=== PATIENT | female | born 1995 | race African-American/Black ===

== ENCOUNTER 2016-09-08 11:21 | Emergency (ER) | payer MEDICAID ==
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
[2016-09-08] MEDS ORDERED: IBUPROFEN 600 MG TABLET PO ONE (11:34)
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
[2016-09-08 15:39] VITALS: BP 122/64
== END 2016-09-08 15:17 | disposition home or self-care (01) ==
LOC: ER 11:21
DX: M54.5 Low back pain (principal); M79.641 Pain in right hand; Y04.2XXA Assault by strike against or bumped into by another person, initial encounter; F17.210 Nicotine dependence, cigarettes, uncomplicated; M79.89 Other specified soft tissue disorders
CPT/HCPCS: 99283; 73130; 72110; 72070; J3490

== ENCOUNTER 2017-01-08 16:44 | Emergency (ER) | payer MEDICAID ==
--- NOTE | 2017-01-08 17:57 | ER Document Report ---
HPI - HPI Patient complains to provider of: right foot injury Pain Level: 4 Context: 21 yo female c/o pain and swelling to right foot. pt reports she tripped over dresser drawer this morning, twisting her foot and ankle. no weight bearing tolerated. Associated Symptoms: None Exacerbated by: Movement, Walking Relieved by: Denies Similar symptoms previously: No Recently seen / treated by doctor: No - ROS Systems Reviewed and Negative: Yes All other systems reviewed and negative - REPRODUCTIVE Reproductive: DENIES: : - DERM Skin Color: Normal Past Medical History - General Information source: Patient - Social History Smoking Status: Never Smoker Frequency of alcohol use: None Drug Abuse: None Lives with: Family Family History: Reviewed & Not Pertinent - Medical History Medical History: Negative Renal/ Medical History: Denies: Hx Peritoneal Dialysis Past Surgical History: Reports: Hx Tonsillectomy - Immunizations Immunizations up to date: Yes Hx Diphtheria, Pertussis, Tetanus Vaccination: Yes Vertical Provider Document - CONSTITUTIONAL Agree With Documented VS: Yes Exam Limitations: No Limitations General Appearance: WD/WN, No Apparent Distress - INFECTION CONTROL TRAVEL OUTSIDE OF THE [place] IN LAST 30 DAYS: No - HEENT HEENT: PERRLA - NECK Neck: Normal Inspection, Supple - RESPIRATORY Respiratory: Breath Sounds Normal, No Respiratory Distress O2 Sat by Pulse Oximetry: 100 - CARDIOVASCULAR Cardiovascular: Regular Rate, Regular Rhythm - MUSCULOSKELETAL/EXTREMETIES Musculoskeletal/Extremeties: Tender - right lateral foot and lateral malleolus tender and swollen - NEURO Level of Consciousness: Awake, Alert, Appropriate - DERM Integumentary: Warm, Dry Course - Vital Signs Vital signs: Temp Pulse Resp BP Pulse Ox 76 16 110/64 100 01/08/17 17:02 01/08/17 17:02 01/08/17 17:02 01/08/17 17:02 Procedures - Immobilization right ankle Pre-Proc Neuro Vasc Exam: Normal Immobilizer type: Jimenez wrap Performed by: PCT Post-Proc Neuro Vasc Exam: Normal Alignment checked and good: Yes Discharge - Discharge Clinical Impression: Right ankle sprain, Right foot sprain Condition: Stable Instructions: Jimenez Wrap ([facility]), Use of Crutches ([facility]), Ibuprofen (General) ([facility]) , Ice Packs ([facility]), Sprain ([facility]), Sprained Ankle ([facility]), Ultram ([facility]) Additional Instructions: Your xray is negative for fracture today wear jimenez wrap for comfort and support use crutches until able to bear weight without pain take medications as prescribed follow up with your primary care if pain persists more than 10 days Prescriptions: Ibuprofen [Motrin 800 Mg Tablet] 800 mg PO Q6H #20 tablet Tramadol HCl [Ultram 50 mg Tablet] 50 mg PO ASDIR PRN #20 tablet PRN Reason:
--- NOTE | 2017-01-08 18:44 | RADIOLOGY REPORT (SQ) ---
EXAM DESCRIPTION: ANKLE RIGHT COMPLETE COMPLETED DATE/TIME: 01/08/2017 6:36 pm REASON FOR STUDY: fall, pain COMPARISON: None. NUMBER OF VIEWS: Three views. TECHNIQUE: AP, lateral, and oblique radiographic images acquired of the right ankle. LIMITATIONS: None. FINDINGS: MINERALIZATION: Normal. BONES: No acute fracture or dislocation. No worrisome bone lesions. JOINTS: No effusions. SOFT TISSUES: No soft tissue swelling. No foreign body. OTHER: No other significant finding. IMPRESSION: NEGATIVE STUDY OF THE RIGHT ANKLE. NO RADIOGRAPHIC EVIDENCE OF ACUTE INJURY. TECHNICAL DOCUMENTATION: JOB ID: [id number] [employer]- All Rights Reserved
[2017-01-08 18:59] VITALS: BP 105/68
== END 2017-01-08 18:59 | disposition home or self-care (01) ==
LOC: ER 16:44
DX: S93.601A Unspecified sprain of right foot, initial encounter (principal); S93.401A Sprain of unspecified ligament of right ankle, initial encounter; W01.0XXA Fall on same level from slipping, tripping and stumbling without subsequent striking against object, initial encounter; Y92.009 Unspecified place in unspecified non-institutional (private) residence as the place of occurrence of the external cause
CPT/HCPCS: 99283

== ENCOUNTER 2017-01-09 18:27 | Emergency (ER) | payer MEDICAID ==
[2017-01-09 18:31] VITALS: BP 118/66
--- NOTE | 2017-01-09 19:30 | RADIOLOGY REPORT (SQ) ---
EXAM DESCRIPTION: ANKLE RIGHT COMPLETE COMPLETED DATE/TIME: 01/09/2017 7:04 pm REASON FOR STUDY: sprianed her ankle yesterday, fell again, pain COMPARISON: 01/08/2017 NUMBER OF VIEWS: Three views. TECHNIQUE: AP, lateral, and oblique radiographic images acquired of the right ankle. LIMITATIONS: None. FINDINGS: MINERALIZATION: Normal. BONES: No acute fracture or dislocation. No worrisome bone lesions. JOINTS: No effusions. SOFT TISSUES: No soft tissue swelling. No foreign body. OTHER: No other significant finding. IMPRESSION: NEGATIVE STUDY OF THE RIGHT ANKLE. NO RADIOGRAPHIC EVIDENCE OF ACUTE INJURY. TECHNICAL DOCUMENTATION: JOB ID: [id number] [employer]- All Rights Reserved
--- NOTE | 2017-01-09 19:45 | RADIOLOGY REPORT (SQ) ---
EXAM DESCRIPTION: FOOT RIGHT COMPLETE COMPLETED DATE/TIME: 01/09/2017 7:35 pm REASON FOR STUDY: fall COMPARISON: None. NUMBER OF VIEWS: Three views. TECHNIQUE: AP, lateral and oblique radiographic images acquired of the right foot. LIMITATIONS: None. FINDINGS: MINERALIZATION: Normal. BONES: No acute fracture or dislocation. No worrisome bone lesions. JOINTS: No effusions. SOFT TISSUES: No soft tissue swelling. No foreign body. OTHER: No other significant finding. IMPRESSION: NEGATIVE STUDY OF THE RIGHT FOOT. NO RADIOGRAPHIC EVIDENCE OF ACUTE INJURY. TECHNICAL DOCUMENTATION: JOB ID: [id number] [employer]- All Rights Reserved
--- NOTE | 2017-01-09 19:49 | ER Document Report ---
ED Extremity Problem, Lower - General Chief Complaint: Ankle Pain Stated Complaint: FALL/ ANKLE INJURY Time Seen by Provider: 01/09/17 19:19 Notes: Patient is a 21-year-old female seen here yesterday for right ankle sprain. Patient states that she was on crutches today tripped and fell and rolled her ankle laterally again today. Patient admits to swelling on the top of her foot that is new today with associated breathing. Patient took tramadol prior to arrival. TRAVEL OUTSIDE OF THE [place] IN LAST 30 DAYS: No - Related Data Allergies/Adverse Reactions: No Known Allergies Allergy (Verified 01/09/17 18:31) Past Medical History - Social History Smoking Status: Unknown if Ever Smoked Family History: Reviewed & Not Pertinent Renal/ Medical History: Denies: Hx Peritoneal Dialysis Past Surgical History: Reports: Hx Tonsillectomy - Immunizations Immunizations up to date: Yes Hx Diphtheria, Pertussis, Tetanus Vaccination: Yes Review of Systems - Review of Systems Constitutional: No symptoms reported Musculoskeletal: See HPI Physical Exam - Vital signs Vitals: Temp Pulse Resp BP Pulse Ox 98.4 F 85 14 118/66 100 01/09/17 18:31 01/09/17 18:31 01/09/17 18:31 01/09/17 18:31 01/09/17 18:31 - Cardiovascular Pulses: Normal: Dorsalis pedis Normal capillary refill: Yes - Extremities Thigh: Normal Knee: Normal Calf: Normal Ankle: Tender, Ecchymosis, Edema Foot: Tender, Ecchymosis, Edema, Metatarsal compress. pain, Unable to bear weight - Skin Skin Temperature: Warm Skin Moisture: Dry Skin Color: Normal Skin Turgor: Elastic Course - Re-evaluation Re-evalutation: 01/09/17 21:32 Patient is a 21-year-old female hemodynamic stable, no acute distress afebrile. No evidence of new fracture dislocation on x-ray. Patient educated on proper use of crutches. Patient stable for discharge home. Patient agrees with plan. - Vital Signs Vital signs: Temp Pulse Resp BP Pulse Ox 98.4 F 85 14 118/66 100 01/09/17 18:31 01/09/17 18:31 01/09/17 18:31 01/09/17 18:31 01/09/17 18:31 - Diagnostic Test Radiology reviewed: Image reviewed, Reports reviewed Discharge - Discharge Clinical Impression: Right foot sprain Qualifiers: Encounter type: subsequent encounter Qualified Code(s): S93.601D - Unspecified sprain of right foot, subsequent encounter Right ankle sprain Qualifiers: Encounter type: subsequent encounter Condition: Good Disposition: HOME, SELF-CARE Instructions: Jimenez Wrap ([facility]), Use of Crutches ([facility]), Ice & Elevation ([facility]) Forms: Return to Work
== END 2017-01-09 20:04 | disposition home or self-care (01) ==
LOC: ER 18:27
DX: S93.601D Unspecified sprain of right foot, subsequent encounter (principal); M25.571 Pain in right ankle and joints of right foot; M79.89 Other specified soft tissue disorders; W19.XXXA Unspecified fall, initial encounter
CPT/HCPCS: 99283

== ENCOUNTER 2017-08-31 15:56 | Outpatient (CLI) | payer MEDICAID ==
[2017-08-31 16:40] LABS: APPEARANCE,URINE CLEAR; BILIRUBIN,URINE NEGATIVE (NEGATIVE); COLOR,URINE YELLOW; GLUCOSE, URINE NEGATIVE (NEGATIVE); KETONES,URINE NEGATIVE (NEGATIVE); LEUKOCYTE ESTERASE,URINE NEGATIVE (NEGATIVE); NITRITE,URINE NEGATIVE (NEGATIVE); PROTEIN,URINE NEGATIVE (NEGATIVE); URINE SPECIFIC GRAVITY 1.012
[2017-08-31 16:52] LABS: URINE AMPHETAMINES SCREEN NEGATIVE; URINE BARBITURATES SCREEN NEGATIVE; URINE BENZODIAZEPINES SCREEN NEGATIVE; URINE COCAINE SCREEN NEGATIVE; URINE METHADONE SCREEN NEGATIVE; URINE PHENCYCLIDINE SCREEN NEGATIVE
[2017-08-31 16:58] LABS: URINE MARIJUANA (THC) SCREEN UNCONFIRMED POSITIVE
[2017-08-31 17:04] LABS: ABSOLUTE BASOPHILS # (AUTO) 0.1 10^3/uL (0.0-0.2); ABSOLUTE MONOCYTES (AUTO) 0.7 10^3/uL (0.1-1.4); ABSOLUTE NEUT (AUTO) 4.6 10^3/uL (1.7-8.2); EOSINOPHILS % (AUTO) 0.6 % (0-6); HEMATOCRIT 31.5 % (36.0-47.0); HEMOGLOBIN 10.2 g/dL (12.0-15.5); LYMPHOCYTES % (AUTO) 26.4 % (13-45); MEAN CORPUSCULAR HEMOGLOBIN 25.4 pg (27.0-33.4); MEAN CORPUSCULAR HGB CONC 32.6 g/dL (32.0-36.0); MEAN CORPUSCULAR VOLUME 78 fl (80-97); PLATELET COUNT 273 10^3/uL (150-450); RED BLOOD COUNT 4.03 10^6/uL (3.72-5.28); RED CELL DISTRIBUTION WIDTH 14.4 % (11.5-14.0); TOTAL CELLS COUNTED % (AUTO) 100 %; WHITE BLOOD COUNT 7.4 10^3/uL (4.0-10.5)
[2017-08-31 17:13] LABS: ALANINE AMINOTRANSFERASE 30 U/L (9-52); ALBUMIN 3.6 g/dL (3.5-5.0); ALKALINE PHOSPHATASE 154 U/L (38-126); ANION GAP 8 (5-19); ASPARTATE AMINO TRANSFERASE 20 U/L (14-36); BILIRUBIN,DIRECT 0.3 mg/dL (0.0-0.4); BILIRUBIN,TOTAL 0.4 mg/dL (0.2-1.3); BLOOD UREA NITROGEN 3 mg/dL (7-20); CALCIUM 9.2 mg/dL (8.4-10.2); CARBON DIOXIDE 22 mmol/L (22-30); CHLORIDE 108 mmol/L (98-107); GLUCOSE 70 mg/dL (75-110); POTASSIUM 4.2 mmol/L (3.6-5.0); SODIUM 137.5 mmol/L (137-145); TOTAL PROTEIN 7.2 g/dL (6.3-8.2)
--- NOTE | 2017-08-31 17:47 | Non Stress Test Report ---
Non Stress Test Datetime Report Generated by CPN: 08/31/2017 17:46 DEMOGRAPHIC EGA NST: 35.5 INDICATION Indication for Study: Ordered by Provider; Other MONITORING Monitor Explained: Monitor Explained; Test Explained; Patient Verbalized Understanding Time on Monitor: 08/31/2017 16:10 Time off Monitor: 08/31/2017 17:40 NST Duration: 90 NST INTERVENTIONS NST Interventions: PO Hydration; Reposition Patient Physician Notified NST: LC BABY A: [id number] BABY A Movement : Present Contraction Frequency : Irr FHR Baseline : 145 Accelerations : 15X15 Decelerations : None Variability : Moderate 6-25bpm NST Review: Meets Criteria for Reactive NST NST Review and Verified By : Eva Childers RNC NST Results: Reactive NST REPORT Report Trigger: Send Report
== END 2017-08-31 17:56 | disposition home or self-care (01) ==
LOC: LC 15:56
PROVIDERS: ATTEND Student in an Organized Health Care Education/Training Program
PROC: 4A1HXCZ Monitoring of Products of Conception, Cardiac Rate, External Approach (ICD-10-PCS; principal; 2017-08-31)
DX: Z36.89 Encounter for other specified antenatal screening (principal); Z3A.35 35 weeks gestation of pregnancy
CPT/HCPCS: 59025; 36415; 82962; 85025; 80053; 81001; 80307; G0480 ×2

== ENCOUNTER 2017-09-28 00:12 | Outpatient (CLI) | payer MEDICAID ==
[2017-09-28 01:03] LABS: APPEARANCE,URINE CLEAR; BILIRUBIN,URINE NEGATIVE (NEGATIVE); COLOR,URINE YELLOW; GLUCOSE, URINE NEGATIVE (NEGATIVE); KETONES,URINE NEGATIVE (NEGATIVE); LEUKOCYTE ESTERASE,URINE NEGATIVE (NEGATIVE); NITRITE,URINE NEGATIVE (NEGATIVE); PROTEIN,URINE NEGATIVE (NEGATIVE); URINE SPECIFIC GRAVITY 1.006; UROBILINOGEN,URINE NEGATIVE mg/dL (<2.0)
[2017-09-28 01:27] LABS: URINE AMPHETAMINES SCREEN NEGATIVE; URINE BARBITURATES SCREEN NEGATIVE; URINE BENZODIAZEPINES SCREEN NEGATIVE; URINE COCAINE SCREEN NEGATIVE; URINE METHADONE SCREEN NEGATIVE; URINE PHENCYCLIDINE SCREEN NEGATIVE
[2017-09-28 01:32] LABS: URINE MARIJUANA (THC) SCREEN UNCONFIRMED POSITIVE
--- NOTE | 2017-09-28 01:34 | Non Stress Test Report ---
Non Stress Test Datetime Report Generated by CPN: 09/28/2017 01:34 DEMOGRAPHIC EGA NST: 39.5 INDICATION Indication for Study: Ordered by Provider; Other Indication for Study (NST) Other: LC URINE RESULTS Urine Protein, NST: Negative Urine Ketones - NST: Negative Urine Glucose - NST: Negative Urine Blood - NST: Negative MONITORING Monitor Explained: Monitor Explained; Test Explained; Patient Verbalized Understanding Time on Monitor: 09/28/2017 00:37 Time off Monitor: 09/28/2017 01:18 NST Duration: 41 NST INTERVENTIONS NST Interventions: PO Hydration; Reposition Patient BABY A: [id number] BABY A Movement : Present Contraction Frequency : Irregular FHR Baseline : 135 Accelerations : 15X15 Decelerations : None Variability : Moderate 6-25bpm NST Review: Meets Criteria for Reactive NST NST Review and Verified By : Abad Dubon RN NST Results: Reactive NST REPORT Report Trigger: Send Report
[2017-09-28 21:51] LABS: APPEARANCE,URINE CLEAR; BILIRUBIN,URINE NEGATIVE (NEGATIVE); COLOR,URINE YELLOW; GLUCOSE, URINE NEGATIVE (NEGATIVE); KETONES,URINE NEGATIVE (NEGATIVE); LEUKOCYTE ESTERASE,URINE NEGATIVE (NEGATIVE); NITRITE,URINE NEGATIVE (NEGATIVE); PROTEIN,URINE NEGATIVE (NEGATIVE); URINE SPECIFIC GRAVITY 1.009
[2017-09-28 22:18] LABS: URINE AMPHETAMINES SCREEN NEGATIVE; URINE BARBITURATES SCREEN NEGATIVE; URINE BENZODIAZEPINES SCREEN NEGATIVE; URINE COCAINE SCREEN NEGATIVE; URINE METHADONE SCREEN NEGATIVE; URINE PHENCYCLIDINE SCREEN NEGATIVE
[2017-09-28 22:25] LABS: URINE MARIJUANA (THC) SCREEN UNCONFIRMED POSITIVE
== END 2017-09-28 02:44 | disposition home or self-care (01) ==
LOC: LC 00:12
PROVIDERS: ATTEND Student in an Organized Health Care Education/Training Program
PROC: 4A1HXCZ Monitoring of Products of Conception, Cardiac Rate, External Approach (ICD-10-PCS; principal; 2017-09-28)
DX: O47.1 False labor at or after 37 completed weeks of gestation (principal); Z3A.39 39 weeks gestation of pregnancy
CPT/HCPCS: 81005; 81001; 80307; 59025; G0480 ×2

== ENCOUNTER 2017-09-28 21:05 | Inpatient (IN) | payer MEDICAID ==
[2017-09-28] MEDS ORDERED: LIDOCAINE 1% INJ-PF (10 MG/ML) 30 ML SDV ONE (21:26)
[2017-09-28] MEDS ORDERED: MISOPROSTOL 0.2 MG TABLET ONE (21:26)
[2017-09-28] MEDS ORDERED: OXYTOCIN/NORMAL SALINE 20 UNIT/1,000 ML RTUINJ ONE (21:27)
--- NOTE | 2017-09-28 21:52 | Admission Physical ---
Datetime Report Generated by CPN: 09/28/2017 21:52 CURRENT ADMISSION Chief Complaint: Uterine Contractions Indication for Induction: Not Applicable Admit Impression : Term, Intrauterine ; Active Labor Admit Plan: Admit to Unit ALLERGIES Medication Allergies: No Medication Allergies: No Known Allergies (09/28/2017) Latex: No Latex Allergies Food Allergies: none Environmental Allergies: none OBSTETRICAL HISTORY EDC: 09/30/2017 00:00 : 4 Para: 2 Term: 2 : 0 SAB: 0 IAB: 1 Ectopic: 0 Livin Cesareans: 0 VBACs: 0 Multiple Births: 0 Gestational Diabetes: No Rh Sensitization: No Incompetent Cervix: No MUKESH: No Infertility: No ART Treatment: No Uterine Anomaly: No IUGR: No Hx Previous C/S: No Macrosomia: No Hx Loss/Stillborn: No PIH: No Hx : Yes Placenta Previa/Abruption: No Depression/PP Depression: No PTL/PROM: No Post Hemorrhage: No Current Procedures: Ultrasound; NST Obstetrical History Comments: G1- 2013 , 39.2 weeks, 7lbs, 11oz female, epidural, of SIDS at 3 mo old G2- 2014 , 40 weeks, 7lbs 11oz female, epidural G3- current SEE RECORDS Alcohol: No Marijuana : Yes Marijuana Comments: positive 09/28/17 confirmation sent Cocaine: No Other Illicit Drugs: No Cigarettes: Former Smoker. 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 Surgery: No Heart Disease: No Hosp/Surgery: Yes Autoimmune Disorder: No Anesthetic Complications: No Kidney Disease: No Abnormal Pap Smear: No Neuro/Epilepsy: No Psychiatric Disorders: No Other Medical Diseases: No Hepatitis/Liver Disease: No Significant Family History: No Varicosities/Phlebitis: No Trauma/Violence : No Thyroid Dysfunction: No Medical History Comments: tonsils, wisdom, hospitalization childbirth INFECTIOUS HISTORY Gonorrhea: No Genital Herpes: No Chlamydia: Yes Tuberculosis: No Syphilis: No Hepatitis: No HIV/AIDS Exposure: No Rash or Viral Illness: No HPV: No Infectious History Comments: hx chlamydia with the PHYSICAL EXAM General: Normal HEENT: Normal Neurologic: Normal Thyroid: Normal Heart: Normal Lungs: Normal Breast: Deferred Back: Normal Abdomen: Normal Genitourinary Exam: Normal Extremities: Normal DTRs: Normal Pelvic Type: Adequate VAGINAL EXAM Dilatation: 7 Effacement: 100 Station: -1 MEMBRANES Pooling: Negative Membranes: Intact FETUS A EGA: 39.5 Monitoring: External US FHR- Baseline: 130 Variability: Moderate 6-25bpm Decelerations: None FHR Category: Category I Presentation: Vertex Admit Comment: anticipate delivery PLANS FOR LABOR AND DELIVERY Pain Management: Epidural Feeding Preference: Formula Benefit of Breast Feed Discussed: Yes Circumcision: N/A INFORMED CONSENT Signature: with User ID: [email or web address]
[2017-09-28] MEDS ORDERED: PROMETHAZINE HCL 25 MG TABLET PO PRN (21:56)
[2017-09-28] MEDS ORDERED: PROMETHAZINE HCL 25 MG SUPP.RECT PR PRN (21:56)
[2017-09-28] MEDS ORDERED: DIBUCAINE 1% OINTMENT 28 GM TP PRN (21:56)
[2017-09-28] MEDS ORDERED: PSEUDOEPHEDRINE HCL 30 MG TABLET PO PRN (21:56)
[2017-09-28] MEDS ORDERED: GLYCERIN/WITCH HAZEL LEAF 1 EACH MED..PAD TP PRN (21:56)
[2017-09-28] MEDS ORDERED: DIPHENHYDRAMINE HCL 25 MG CAPSULE PO PRN (21:56)
[2017-09-28] MEDS ORDERED: MEASLES,MUMPS&RUBELLA VACC/PF 0.5 ML VIAL SUBCUT PRN (21:56)
[2017-09-28] MEDS ORDERED: BENZOCAINE/MENTHOL AEROSOL SPRAY 56 ML TOP PRN (21:56)
[2017-09-28] MEDS ORDERED: PROMETHAZINE HCL INJ 25 MG/1 ML VIAL IV PRN (21:56)
[2017-09-28] MEDS ORDERED: ACETAMINOPHEN WITH CODEINE #3 TABLET PO PRN (21:56)
[2017-09-28] MEDS ORDERED: MAGNESIUM HYDROXIDE SUSP 30 ML UDCUP PO PRN (21:56)
[2017-09-28] MEDS ORDERED: ZOLPIDEM TARTRATE 5 MG TABLET PO PRN (21:56)
[2017-09-28] MEDS ORDERED: ACETAMINOPHEN 650 MG SUPP.RECT PR PRN (21:56)
[2017-09-28] MEDS ORDERED: OXYTOCIN/NORMAL SALINE 20 UNIT/1,000 ML RTUINJ IV PRN (21:56)
[2017-09-28] MEDS ORDERED: NA PHOS,M-B/NA PHOS,DI-BA (ADULT) 133 ML ENEMA PR PRN (21:56)
[2017-09-28] MEDS ORDERED: DIPH/PERTUSS(ACELL)/TETANUS VAC/PF 0.5 ML SYR (>=10YO) IM PRN (21:56)
[2017-09-28 22:11] LABS: ABSOLUTE LYMPHOCYTES (AUTO) 2.9 10^3/uL (0.5-4.7); ABSOLUTE MONOCYTES (AUTO) 0.9 10^3/uL (0.1-1.4); ABSOLUTE NEUT (AUTO) 6.2 10^3/uL (1.7-8.2); BASOPHILS % (AUTO) 0.5 % (0-2); EOSINOPHILS % (AUTO) 0.4 % (0-6); HEMATOCRIT 30.7 % (36.0-47.0); HEMOGLOBIN 10.1 g/dL (12.0-15.5); LYMPHOCYTES % (AUTO) 28.6 % (13-45); MEAN CORPUSCULAR HEMOGLOBIN 24.5 pg (27.0-33.4); MEAN CORPUSCULAR HGB CONC 32.9 g/dL (32.0-36.0); MEAN CORPUSCULAR VOLUME 75 fl (80-97); MONOCYTES % (AUTO) 9.3 % (3-13); PLATELET COUNT 318 10^3/uL (150-450); RED BLOOD COUNT 4.11 10^6/uL (3.72-5.28); RED CELL DISTRIBUTION WIDTH 15.5 % (11.5-14.0); SEGMENTED NEUTROPHILS % (AUTO) 61.2 % (42-78); TOTAL CELLS COUNTED % (AUTO) 100 %
--- NOTE | 2017-09-28 22:56 | Warning Signs in Babies ---
VOD Warning Signs Datetime Report Generated by [facility]: 09/28/2017 22:56 VOD#[id number] -Warning Signs in Babies: Viewed with Parent(s)/Family (08/31/2017 15:58:Jessica Mast RN)
[2017-09-28] MEDS: IBUPROFEN 800 MG TABLET PO SCH (23:10)
[2017-09-28] MEDS ORDERED: IBUPROFEN 800 MG TABLET ONE (23:11)
[2017-09-28] MEDS: ACETAMINOPHEN WITH CODEINE #3 TABLET PO PRN (23:11)
[2017-09-28] MEDS ORDERED: ACETAMINOPHEN WITH CODEINE #3 TABLET ONE (23:11)
[2017-09-28] MEDS: FAMOTIDINE 20 MG TABLET PO SCH (23:19)
--- NOTE | 2017-09-29 00:10 | Delivery Summary ---
Del Sum A-C Datetime Report Generated by CPN: 09/29/2017 00:10 DELIVERY PERSONNEL DELIVERY PERSONNEL: [id number] Delivery Doctor:: Michele Hutchinson MD Labor and Delivery Nurse:: Jessica Mast RNsmokehouse operator Nurse:: Chelly Villarreal RN Stitch Separator/MEAT CUTTER APPRENTICE: Toshia Vásquezerra, MEAT CUTTER APPRENTICE MATERNAL INFORMATION Delivery Anesthesia: None Medications After Delivery: Pitocin Bolus-Please Comment; Pitocin Drip 20 Units/1000ml NSS Estimated Blood Loss (ml): 250 Maternal Complications: Precipitous Labor (<3hrs) LABOR SUMMARY EDC: 09/30/2017 00:00 No. Babies in Womb: 1 Attempted: No Labor Anesthesia: None LABOR INFORMATION Reason for Induction: Not Applicable Onset of Labor: 09/28/2017 18:00 Complete Dilatation: 09/28/2017 22:20 Oxytocin: N/A Group B Beta Strep: Negative Antibiotics # of Doses: 0 Steroids Given: None Reason Steroids Not Administered: Not Applicable MEMBRANES Membranes Rupture Method: Artificial Rupture of Membranes: 09/28/2017 22:20 Length of Rupture (hr): 0.25 Amniotic Fluid Color: Clear Amniotic Fluid Amount: Moderate Amniotic Fluid Odor: Normal STAGES OF LABOR Stage 1 hr: 4 Stage 1 min: 20 Stage 2 hr: 0 Stage 2 min: 15 Stage 3 hr: 0 Stage 3 min: 3 Total Time in Labor hr: 4 Total Time in Labor min: 38 VAGINAL DELIVERY Episiotomy: None Laceration #1: None Laceration Extension #1: N/A Laceration Repair: Not Applicable Sponge Count Correct: N/A; Vaginal Sweep Performed Sharps Count Correct: N/A CSECTION DELIVERY Primary Indication: N/A Secondary Indication: N/A CSection Incidence: N/A Labor: N/A Elective: N/A CSection Incision: N/A BABY A INFORMATION Delivery Date/Time: 09/28/2017 22:35 Method of Delivery: Vaginal Born in Route : No : N/A Forceps: N/A Vacuum Extraction: N/A Shoulder Dystocia : No PRESENTATION/POSITION BABY A Presentation: Cephalic Cephalic Presentation: Vertex Vertex Position: Right Occipital Anterior Breech Presentation: N/A PLACENTA INFORMATION BABY A Placenta Delivery Time : 09/28/2017 22:38 Placenta Method of Delivery: Spontaneous Placenta Status: Delivered SCORES BABY A Heart Rate 1 min: >100 bpm Resp Effort 1 min: Good Cry Reflex Irritability 1 min: Cough or Sneeze or Pulls Away Muscle Tone 1 min: Active Motion Color 1 min: Body [place], Extremities Blue SCORE 1 MIN: 9 Heart Rate 5 min: >100 bpm Resp Effort 5 min: Good Cry Reflex Irritability 5 min: Cough or Sneeze or Pulls Away Muscle Tone 5 min: Active Motion Color 5 min: Body [place], Extremities Blue SCORE 5 MIN: 9 INFORMATION BABY A Gestational Age at Delivery: 39.5 Gestational Status: Full Term- 39- 40.6 Weeks Outcome : Liveborn Infant Condition : Stable Infant Sex: Female IDENTIFICATION BABY A Verification Date/Time: 09/28/2017 22:43 ID Band Number: [id number] Mother's Name Verified: Yes RN Verifying : Abad Dubon, RN Additional Verifying Personnel: Torsten Pickett WEIGHT/LENGTH BABY A Birthweight (gm): 3375 Weight (lb): 7 Weight (oz): 7 Infant Length (in): 19.00 Infant Length (cm): 48.26 CORD INFORMATION BABY A No. Cord Vessels: 3 Nuchal Cord : N/A Cord Blood Taken: Yes-For Eval (Mom's Blood Type - or O+) Infant Suction: Mouth; Nose ASSESSMENT BABY A Infant Complications: None Physical Findings at Delivery: Within Normal Limits Skin to Skin: Yes Transferred To: Remains with Mother BABY B INFORMATION : N/A SIGNATURES Signature: with User ID: [email or web address]
[2017-09-29] MEDS: IBUPROFEN 800 MG TABLET PO SCH ×3 (05:47→21:20)
[2017-09-29] MEDS: ACETAMINOPHEN WITH CODEINE #3 TABLET PO PRN (08:42)
[2017-09-29 08:46] LABS: HEMATOCRIT 27.4 % (36.0-47.0); MEAN CORPUSCULAR HEMOGLOBIN 24.4 pg (27.0-33.4); MEAN CORPUSCULAR VOLUME 74 fl (80-97); PLATELET COUNT 298 10^3/uL (150-450); RED BLOOD COUNT 3.71 10^6/uL (3.72-5.28); RED CELL DISTRIBUTION WIDTH 15.7 % (11.5-14.0); WHITE BLOOD COUNT 14.9 10^3/uL (4.0-10.5)
--- NOTE | 2017-09-29 09:45 | PDOC PROGRESS REPORT ---
Subjective-OB Progress Note for:: 09/29/17 Subjective: Doing well, no c/o, bottle feeding, voiding, ambulating Physical Exam (OB) Vital Signs: Temp Pulse Resp BP Pulse Ox 97.5 F 67 17 115/69 100 09/29/17 07:59 09/29/17 07:59 09/29/17 07:59 09/29/17 07:59 09/29/17 07:59 Intake & Output 09/28/17 09/29/17 09/30/17 06:59 06:59 06:59 Weight 80 kg - Lochia Lochia Amount: Scant < 10 ml Lochia Color: Rubra/Red - Abdomen Description: Soft, Flat Hernia Present: No Fundal Description: Firm, Midline Fundal Height: u/u - u/2 Objective-Diagnostic Laboratory: 09/29/17 07:35 09/28/17 09/28/17 09/29/17 21:43 21:47 07:35 WBC 10.0 14.9 H RBC 4.11 3.71 L Hgb 10.1 L 9.0 L Hct 30.7 L 27.4 L MCV 75 L 74 L MCH 24.5 L 24.4 L MCHC 32.9 33.0 RDW 15.5 H 15.7 H Plt Count 318 298 Seg Neutrophils % 61.2 Lymphocytes % 28.6 Monocytes % 9.3 Eosinophils % 0.4 Basophils % 0.5 Absolute Neutrophils 6.2 Absolute Lymphocytes 2.9 Absolute Monocytes 0.9 Absolute Eosinophils 0.0 Absolute Basophils 0.0 Blood Type O POSITIVE Antibody Screen NEGATIVE Assessment and Plan(PN) - Assessment and Plan (1) Vaginal delivery Is this a current diagnosis for this admission?: Yes (2) Marijuana abuse Is this a current diagnosis for this admission?: Yes - Time Spent with Patient Time with patient: Less than 15 minutes Medications reviewed and adjusted accordingly: Yes - Disposition Anticipated Discharge: Home Within: within 24 hours
[2017-09-29] MEDS: PRENATAL VITAMIN W DHA CAPSULE PO SCH (10:26)
[2017-09-29] MEDS: DOCUSATE SODIUM 100 MG CAPSULE PO SCH ×2 (10:26→18:34)
[2017-09-29] MEDS: FAMOTIDINE 20 MG TABLET PO SCH ×2 (10:26→21:20)
[2017-09-29] MEDS: FERROUS SULFATE 325 MG TABLET PO SCH ×2 (10:27→18:34)
[2017-09-29] MEDS: SENNOSIDES/DOCUSATE 8.6-50 MG 1 EACH TABLET PO SCH (10:27)
[2017-09-30] MEDS: IBUPROFEN 800 MG TABLET PO SCH ×2 (06:59→13:37)
[2017-09-30 08:11] VITALS: BP 114/64
--- NOTE | 2017-09-30 09:21 | PDOC PROGRESS REPORT ---
Subjective-OB Progress Note for:: 09/30/17 Subjective: sitting up in bed, doing well, no c/o, ready to go home, voiding Physical Exam (OB) Vital Signs: Temp Pulse Resp BP Pulse Ox 98.0 F 66 18 114/64 100 09/30/17 08:08 09/30/17 08:08 09/30/17 08:08 09/30/17 08:08 09/30/17 08:08 Intake & Output 09/29/17 09/30/17 10/01/17 06:59 06:59 06:59 Weight 80 kg - PIH/Pre-Eclampsia DTR's: 2 + Clonus: Negative Headache: Absent Epigastric Pain: No Visual Changes: No - Lochia Lochia Amount: Scant < 10 ml Lochia Color: Rubra/Red - Abdomen Description: Soft Hernia Present: No Fundal Description: Firm Fundal Height: u/u - u/2 Objective-Diagnostic Laboratory: 09/29/17 07:35 Assessment and Plan(PN) - Assessment and Plan (1) Vaginal delivery Is this a current diagnosis for this admission?: Yes (2) Marijuana abuse Is this a current diagnosis for this admission?: Yes - Time Spent with Patient Medications reviewed and adjusted accordingly: Yes - Disposition Anticipated Discharge: Home Within: within 24 hours, Other - home today
--- NOTE | 2017-09-30 09:24 | PDOC DISCHARGE SUMMARY ---
Final Diagnosis Discharge Date: 09/30/17 - Final Diagnosis (1) Vaginal delivery Is this a current diagnosis for this admission?: Yes (2) Marijuana abuse Is this a current diagnosis for this admission?: Yes Discharge Data - Discharge Medication Home Medications: Vits96/Iron Fum/Folic [ Tablet] 1 tab PO DAILY 06/04/13 Gestational Age: 39.5 Reason(s) for Admission: Onset of Labor Procedures: Ultrasound Intrapartum Procedure(s): Spontaneous Vaginal Delivery - [place] Data Baby 1 Female at 1 minute: 9 at 5 minutes: 9 Weight: 3.374 kg Home with Mother: Yes Complications: No - Diagnosis Test Laboratory: Temp Pulse Resp BP Pulse Ox 98.0 F 66 18 114/64 100 09/30/17 08:08 09/30/17 08:08 09/30/17 08:08 09/30/17 08:08 09/30/17 08:08 09/28/17 09/29/17 21:43 07:35 RBC 4.11 3.71 L Hgb 10.1 L 9.0 L Hct 30.7 L 27.4 L - Discharge information/Instructions Discharge Activity: Activity As Tolerated, No Lifting Over 10 Pounds, No Lifting /Push/Pulling, Pelvic Rest Discharge Diet: As Tolerated, Regular Disposition: HOME, SELF-CARE Follow up with: [facility] in: 4, Weeks
[2017-09-30] MEDS: DOCUSATE SODIUM 100 MG CAPSULE PO SCH ×2 (09:39→17:26)
[2017-09-30] MEDS: SENNOSIDES/DOCUSATE 8.6-50 MG 1 EACH TABLET PO SCH (09:39)
[2017-09-30] MEDS: PRENATAL VITAMIN W DHA CAPSULE PO SCH (09:39)
[2017-09-30] MEDS: FERROUS SULFATE 325 MG TABLET PO SCH ×2 (09:39→17:27)
[2017-09-30] MEDS: FAMOTIDINE 20 MG TABLET PO SCH (09:39)
== END 2017-09-30 18:32 | disposition home or self-care (01) | DRG 775 ==
LOC: LC 21:05 → LR 21:25 → 2S 09-29 00:55
PROVIDERS: ADMIT Obstetrics & Gynecology; ATTEND Obstetrics & Gynecology
PROC: 10E0XZZ Delivery of Products of Conception, External Approach (ICD-10-PCS; principal; 2017-09-28)
PROC: 10907ZC Drainage of Amniotic Fluid, Therapeutic from Products of Conception, Via Natural or Artificial Opening (ICD-10-PCS; 2017-09-28)
PROC: 4A1HXCZ Monitoring of Products of Conception, Cardiac Rate, External Approach (ICD-10-PCS; 2017-09-28)
DX: O62.3 Precipitate labor (principal); O99.323 Drug use complicating pregnancy, third trimester; F12.10 Cannabis abuse, uncomplicated; Z87.891 Personal history of nicotine dependence; Z3A.39 39 weeks gestation of pregnancy; Z37.0 Single live birth
CPT/HCPCS: 36415; 85025; 85027; 86592; 86850; 86900; 86901; J2590; J3490

== ENCOUNTER 2018-11-29 00:42 | Emergency (ER) | payer OTHER ==
[2018-11-29 00:47] VITALS: BP 146/89
[2018-11-29] MEDS ORDERED: LIDOCAINE 5% (700 MG) TRANSDERMAL ADH..PATCH TP ONE (02:30)
[2018-11-29] MEDS ORDERED: KETOROLAC TROMETHAMINE 60 MG/2 ML SDV IM ONE (02:30)
[2018-11-29] MEDS ORDERED: ACETAMINOPHEN 325 MG TABLET PO ONE (02:30)
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
== END 2018-11-29 07:28 | disposition home or self-care (01) ==
LOC: ER 00:42
DX: M54.6 Pain in thoracic spine (principal); M25.512 Pain in left shoulder; M54.5 Low back pain; M25.552 Pain in left hip; V49.40XA Driver injured in collision with unspecified motor vehicles in traffic accident, initial encounter
CPT/HCPCS: 99283; 96372; 72110; 73030; 72070; J1885

== ENCOUNTER 2019-02-22 23:18 | Emergency (ER) | payer SELFPAY ==
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
[2019-02-23] MEDS ORDERED: IBUPROFEN 600 MG TABLET PO ONE (01:08)
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
[2019-02-23 01:36] VITALS: BP 127/72
== END 2019-02-23 01:55 | disposition home or self-care (01) ==
LOC: ER 23:18
DX: S93.401A Sprain of unspecified ligament of right ankle, initial encounter (principal); X50.9XXA Other and unspecified overexertion or strenuous movements or postures, initial encounter; Y93.41 Activity, dancing; F17.200 Nicotine dependence, unspecified, uncomplicated; Z88.5 Allergy status to narcotic agent
CPT/HCPCS: 73610; L1902; 99283

== ENCOUNTER 2019-06-15 20:15 | Emergency (ER) | payer SELFPAY ==
[2019-06-15 21:22] VITALS: BP 135/84
[2019-06-15] MEDS ORDERED: DIPHENHYDRAMINE HCL 50 MG/ML VIAL IV ONE (22:00)
[2019-06-15] MEDS ORDERED: PROCHLORPERAZINE EDISYLATE INJ 10 MG/2 ML VIAL IV ONE (22:00)
--- NOTE | 2019-06-15 22:02 | ER Document Report ---
ED Medical Screen (RME) - General Chief Complaint: Headache Stated Complaint: HEADACHE,HIGH BLOOD PRESSURE Time Seen by Provider: 06/15/19 22:00 Primary Care Provider: KEVIN SEGOVIA MD [Primary Care Provider] - Follow up as needed Mode of Arrival: Ambulatory Information source: Patient Notes: Patient presents complaining of left-sided headache pain that started this afternoon. Patient does report light sensitivity. No vomiting or head injury. Patient states her blood pressure at home was 142/90 and she got concerned by this elevated reading. I have greeted and performed a rapid initial assessment of this patient. A comprehensive ED assessment and evaluation of the patient, analysis of test results and completion of the medical decision making process will be conducted by additional ED providers. TRAVEL OUTSIDE OF THE [place] IN LAST 30 DAYS: No - Related Data Allergies/Adverse Reactions: codeine Allergy (Verified 02/23/19 00:30) Past Medical History Renal/ Medical History: Denies: Hx Peritoneal Dialysis Past Surgical History: Reports: Hx Tonsillectomy - Immunizations Immunizations up to date: Yes Hx Diphtheria, Pertussis, Tetanus Vaccination: Yes Physical Exam - Vital signs Vitals: Temp Pulse Resp BP Pulse Ox 97.5 F 72 20 135/84 H 100 06/15/19 21:20 06/15/19 21:20 06/15/19 21:20 06/15/19 21:20 06/15/19 21:20 - Neurological Neuro grossly intact: Yes Cognition: Normal [place] Coma Scale Eye Opening: Spontaneous [place] Coma Scale Verbal: Oriented [place] Coma Scale Motor: Obeys Commands [place] Coma Scale Total: 15 Course - Vital Signs Vital signs: Temp Pulse Resp BP Pulse Ox 97.5 F 72 20 135/84 H 100 06/15/19 21:20 06/15/19 21:20 06/15/19 21:20 06/15/19 21:20 06/15/19 21:20 Doctor's Discharge - Discharge Referrals: KEVIN SEGOVIA MD [Primary Care Provider] - Follow up as needed
--- NOTE | 2019-06-16 00:44 | ER Document Report ---
Doctor's Note Notes: 06/16/19 00:43 When I arrived the patient's room she was not in there. I then went to the nurses desk and asked for the patient was and they state that she left several minutes before I arrived and told him that she was going to go home and take Tylenol. She apparently did not wait to sign an AMA form. I was never able to examine or talk to the patient.
== END 2019-06-15 23:40 | disposition left against medical advice (07) ==
LOC: ER 20:15
DX: R51 Headache (principal); H53.149 Visual discomfort, unspecified; Z88.6 Allergy status to analgesic agent; Z88.5 Allergy status to narcotic agent; Z53.20 Procedure and treatment not carried out because of patient's decision for unspecified reasons
CPT/HCPCS: 99281

== ENCOUNTER 2019-07-02 12:35 | Emergency (ER) | payer SELFPAY ==
[2019-07-02 14:20] LABS: ABSOLUTE BASOPHILS # (AUTO) 0.1 10^3/uL (0.0-0.2); ABSOLUTE EOSINOPHILS # (AUTO) 0.1 10^3/uL (0.0-0.6); ABSOLUTE LYMPHOCYTES (AUTO) 2.1 10^3/uL (0.5-4.7); ABSOLUTE MONOCYTES (AUTO) 0.5 10^3/uL (0.1-1.4); ABSOLUTE NEUT (AUTO) 3.5 10^3/uL (1.7-8.2); BASOPHILS % (AUTO) 0.9 % (0-2); EOSINOPHILS % (AUTO) 2.3 % (0-6); HEMATOCRIT 40.8 % (36.0-47.0); HEMOGLOBIN 13.5 g/dL (12.0-15.5); MEAN CORPUSCULAR HEMOGLOBIN 27.1 pg (27.0-33.4); MEAN CORPUSCULAR HGB CONC 32.9 g/dL (32.0-36.0); MEAN CORPUSCULAR VOLUME 82 fl (80-97); MONOCYTES % (AUTO) 8.3 % (3-13); PLATELET COUNT 418 10^3/uL (150-450); RED BLOOD COUNT 4.97 10^6/uL (3.72-5.28); RED CELL DISTRIBUTION WIDTH 14.5 % (11.5-14.0); SEGMENTED NEUTROPHILS % (AUTO) 55.5 % (42-78); TOTAL CELLS COUNTED % (AUTO) 100 %; WHITE BLOOD COUNT 6.3 10^3/uL (4.0-10.5)
--- NOTE | 2019-07-02 14:35 | ER Document Report ---
ED General - General Chief Complaint: Shortness Of Breath Stated Complaint: SHORTNESS OF BREATH/DIZZINESS Time Seen by Provider: 07/02/19 13:29 Mode of Arrival: Ambulatory Information source: Patient TRAVEL OUTSIDE OF THE [place] IN LAST 30 DAYS: No - HPI Notes: Patient presents complaint of shortness of breath. She states this started approximately 11:00 today and she has had 2 episodes today. She states that she feels better now but the shortness of breath is not completely gone away. She states that she feels she may be anxious but does not know what she would be particularly anxious about. She states she has had this off and on for several weeks. The episodes last a few minutes at a time. Nothing makes them better or worse. There is no radiation symptoms. They are mild to moderate. They are obviously intermittent. She denies any new stressors. Patient does smoke cigarettes and does take control pills. Patient has no known history of clotting disorders or family history of clotting disorders. Patient has had no cough cold or congestion. - Related Data Allergies/Adverse Reactions: codeine Allergy (Verified 07/02/19 13:22) Past Medical History - General Information source: Patient - Social History Smoking Status: Current Every Day Smoker Frequency of alcohol use: None Drug Abuse: Marijuana Family History: Reviewed & Not Pertinent Patient has suicidal ideation: No Patient has homicidal ideation: No Renal/ Medical History: Denies: Hx Peritoneal Dialysis Past Surgical History: Reports: Hx Tonsillectomy - Immunizations Immunizations up to date: Yes Hx Diphtheria, Pertussis, Tetanus Vaccination: Yes Review of Systems - Review of Systems Constitutional: denies: Chills, Fever Cardiovascular: denies: Chest pain, Palpitations Respiratory: Short of breath. denies: Cough -: Yes All other systems reviewed and negative Physical Exam - Vital signs Vitals: Temp Pulse Resp BP Pulse Ox 98.3 F 100 16 134/75 H 100 07/02/19 12:39 07/02/19 12:39 07/02/19 12:39 07/02/19 12:39 07/02/19 12:39 Interpretation: Normal - General General appearance: Appears well, Alert - HEENT Head: Normocephalic, Atraumatic Eyes: Normal Pupils: PERRL - Respiratory Respiratory status: No respiratory distress Chest status: Nontender Breath sounds: Normal Chest palpation: Normal - Cardiovascular Rhythm: Regular Heart sounds: Normal auscultation Murmur: No - Abdominal Inspection: Normal Distension: No distension Bowel sounds: Normal Tenderness: Nontender Organomegaly: No organomegaly - Back Back: Normal, Nontender - Extremities General upper extremity: Normal inspection, Nontender, Normal color, Normal ROM, Normal temperature General lower extremity: Normal inspection, Nontender, Normal color, Normal ROM, Normal temperature, Normal weight bearing. No: Nida's sign - Neurological Neuro grossly intact: Yes Cognition: Normal Orientation: AAOx4 [place] Coma Scale Eye Opening: Spontaneous Avenue Coma Scale Verbal: Oriented Avenue Coma Scale Motor: Obeys Commands Avenue Coma Scale Total: 15 Speech: Normal Motor strength normal: LUE, RUE, LLE, RLE Sensory: Normal - Psychological Associated symptoms: Normal affect, Normal mood - Skin Skin Temperature: Warm Skin Moisture: Dry Skin Color: Normal Course - Re-evaluation Re-evalutation: 07/02/19 14:57 Patient reports shortness of breath. No evidence of PE as patient has a negative d-dimer. Work-up is otherwise unremarkable. This seems to be most likely due to anxiety and patient was counseled about this. - Vital Signs Vital signs: Temp Pulse Resp BP Pulse Ox 98.3 F 100 16 134/75 H 100 07/02/19 12:39 07/02/19 12:39 07/02/19 12:39 07/02/19 12:39 07/02/19 12:39 - Laboratory Result Diagrams: 07/02/19 13:55 07/02/19 13:55 Laboratory results interpreted by me: 07/02/19 13:55 RDW 14.5 H - EKG Interpretation by Fl EKG shows normal: Sinus rhythm Rate: Normal - 73 Rhythm: NSR [place]/QRS: No: Right axis deviation, Left axis deviation Discharge - Discharge Clinical Impression: Anxiety Condition: Stable Disposition: HOME, SELF-CARE Instructions: Anxiety ([facility]) Forms: Return to Work
[2019-07-02 14:48] LABS: ALKALINE PHOSPHATASE 102 U/L (38-126); ANION GAP 11 (5-19); ASPARTATE AMINO TRANSFERASE 30 U/L (14-36); BILIRUBIN,DIRECT 0.3 mg/dL (0.0-0.4); BILIRUBIN,TOTAL 0.3 mg/dL (0.2-1.3); BLOOD UREA NITROGEN 7 mg/dL (7-20); CALCIUM 9.5 mg/dL (8.4-10.2); CARBON DIOXIDE 24 mmol/L (22-30); CHLORIDE 105 mmol/L (98-107); GLUCOSE 101 mg/dL (75-110); POTASSIUM 4.3 mmol/L (3.6-5.0)
[2019-07-02 15:14] VITALS: BP 128/74
--- NOTE | 2019-07-02 16:59 | EKG REPORT ---
SEVERITY:- OTHERWISE NORMAL ECG - SINUS ARRHYTHMIA, RATE [id number] : Confirmed by: Rosendo Partida MD 02-Jul-2019 16:58:38
== END 2019-07-02 15:15 | disposition home or self-care (01) ==
LOC: ER 12:35
DX: F41.9 Anxiety disorder, unspecified (principal); R06.02 Shortness of breath; R42 Dizziness and giddiness; F17.210 Nicotine dependence, cigarettes, uncomplicated
CPT/HCPCS: 36415; 80053; 85025; 85379; 93005; 93010; 99285

== ENCOUNTER 2019-07-24 11:03 | Emergency (ER) | payer SELFPAY ==
[2019-07-24 11:13] VITALS: BP 145/73
== END 2019-07-24 13:16 | disposition left against medical advice (07) ==
LOC: ER 11:03
DX: Z53.21 Procedure and treatment not carried out due to patient leaving prior to being seen by health care provider (principal)

== ENCOUNTER 2019-08-21 01:27 | Emergency (ER) | payer SELFPAY ==
--- NOTE | 2019-08-21 03:17 | ER Document Report ---
ED Headache - General Chief Complaint: Headache Stated Complaint: HEADACHE Time Seen by Provider: 08/21/19 03:02 Notes: Patient is a 24-year-old female that comes to the emergency department for chief complaint of a headache. She states her headache started last , about 6 days ago, she states that she keeps getting headaches every day. She states she is able to sleep at night but the headache keeps coming back. Headache is mainly over the left side of the face and head, and behind the left eye. She visual changes, light sensitivity, phonophobia, neck pain, neck injury, head injury, fever, nausea, vomiting. She states she was seen at [facility] for both pain in her chest and a headache but she feels like the headache was not addressed, she was given a cocktail including Toradol, Zofran, IV fluids and states she feels like she felt worse. She states her friend gave her a Percocet and it went away briefly but then it came back. She denies having a history of headaches. Headache is gradual, starts very mild and then worsens. She denies any daily medications. She is on depo contraceptive, denies any daily medications, denies smoking, alcohol, recreational drugs. TRAVEL OUTSIDE OF THE [place] IN LAST 30 DAYS: No - Related Data Allergies/Adverse Reactions: codeine Allergy (Verified 07/02/19 13:22) Past Medical History - General Information source: Patient - Social History Smoking Status: Current Every Day Smoker Chew tobacco use (# tins/day): No Frequency of alcohol use: Occasional Drug Abuse: Marijuana Family History: Reviewed & Not Pertinent Patient has suicidal ideation: No Patient has homicidal ideation: No Renal/ Medical History: Denies: Hx Peritoneal Dialysis Past Surgical History: Reports: Hx Tonsillectomy - Immunizations Immunizations up to date: Yes Hx Diphtheria, Pertussis, Tetanus Vaccination: Yes Review of Systems - Review of Systems Constitutional: No symptoms reported EENT: No symptoms reported Cardiovascular: No symptoms reported Respiratory: No symptoms reported Gastrointestinal: No symptoms reported Genitourinary: No symptoms reported Female Genitourinary: No symptoms reported Musculoskeletal: No symptoms reported Skin: No symptoms reported Hematologic/Lymphatic: No symptoms reported Neurological/Psychological: See HPI Physical Exam - Vital signs Vitals: Temp Pulse Resp BP Pulse Ox 98.3 F 108 H 20 141/73 H 98 08/21/19 01:40 08/21/19 01:40 08/21/19 01:40 08/21/19 01:40 08/21/19 01:40 - Notes Notes: GENERAL: Alert, interacts well. No acute distress. HEAD: Normocephalic, atraumatic. EYES: Pupils equal, round, and reactive to light. Extraocular movements intact. ENT: Oral mucosa moist, tongue midline. Oropharynx unremarkable. Airway patent. LUNGS: Clear to auscultation bilaterally, no wheezes, rales, or rhonchi. No respiratory distress. HEART: Regular rate and rhythm. No murmur ABDOMEN: Soft, non-tender. Non-distended. Bowel sounds present in all 4 quadrants. GENITOURINARY: Deferred EXTREMITIES: Moves all 4 extremities spontaneously. No edema, normal radial and dorsalis pedis pulses bilaterally. No cyanosis. BACK: no cervical, thoracic, lumbar midline tenderness. No saddle anesthesia, normal distal neurovascular exam. Moves all extremities in full range of motion. NEUROLOGICAL: Alert and oriented x3. Normal speech. Cranial nerves II through XII grossly intact. PSYCH: Normal affect, normal mood. SKIN: Warm, dry, normal turgor. No rashes or lesions noted. Course - Re-evaluation Re-evalutation: Patient is very well-appearing. She is alert, has no photophobia, has no neurological deficits, does not appear to be in pain. No fever. No nuchal rigidity or neck pain. She traces a line along the left side of her forehead and head for the areas of pain, pain is intermittent for the past few days. Patient is very concerned because she has never had headaches like this before and she has never had imaging of her head. This is her second evaluation for her headache. She states she is essentially here to make sure there is nothing wrong on a head scan. She was persistent with this. I discussed that this was more likely tension headache, however because she has never had repeated headaches before previously imaging was performed. This was normal. Discussed with patient her normal exam. I do not feel a lumbar puncture is indicated I have a very low suspicion of subarachnoid hemorrhage. Headache was not maximal at onset, is not severe, has no associated symptoms, she has no neurological symptoms, and she is very well-appearing. I recommended treat for tension headache, follow-up with primary care and provided with neurology referral on request. Patient states appreciation and agreement. Stable at time of discharge. - Vital Signs Vital signs: Temp Pulse Resp BP Pulse Ox 97.9 F 100 16 134/76 H 100 08/21/19 04:35 08/21/19 04:35 08/21/19 04:35 08/21/19 04:35 08/21/19 04:35 Discharge - Discharge Clinical Impression: Frequent headaches Condition: Stable Disposition: HOME, SELF-CARE Additional Instructions: The imaging of your brain is negative. Your evaluation is reassuring. Based on your evaluation and imaging I suspect you are having tension headaches. Improve your sleep, take the muscle relaxer as prescribed at night, take the Fioricet as needed during the day for headaches, follow-up with primary care. If symptoms continue follow-up with the neurology referral listed below. Return if you worsen including severe worsening headache, vomiting, fever, stiffness in your neck, visual changes, or any other concerning or worsening symptoms. [facility] [address] [place] [id number] Prescriptions: Butalb/Acetaminophen/Caffeine [Fioricet (50-325-40 mg) Tablet] 1 tab PO Q4HP PRN #20 tab PRN Reason: Methocarbamol [Robaxin-750] 750 mg PO QID PRN #20 tablet PRN Reason: Forms: Return to Work
--- NOTE | 2019-08-21 04:23 | RADIOLOGY REPORT (SQ) ---
CT head without contrast on 08/21/2019 at 3:18 AM CLINICAL INDICATION: Severe recurring headaches TECHNIQUE: Multiple axial images are obtained throughout the head without the administration of contrast. This exam was performed according to our departmental dose-optimization program, which includes automated exposure control, adjustment of the mA and/or kV according to patient size and/or use of iterative reconstruction technique. Total DLP is 1150.19 mGy*cm. COMPARISON: None FINDINGS: There is no hydrocephalus. There is no CT evidence of acute infarct. There is no hemorrhage. There are no abnormal extra-axial fluid collections. There is no mass, mass effect or midline shift. No bony abnormality is noted. IMPRESSION: No acute intracranial abnormality.
[2019-08-21 04:37] VITALS: BP 134/76
== END 2019-08-21 04:44 | disposition home or self-care (01) ==
LOC: ER 01:27
DX: R51 Headache (principal); R07.9 Chest pain, unspecified; Z79.899 Other long term (current) drug therapy; F17.200 Nicotine dependence, unspecified, uncomplicated; F12.10 Cannabis abuse, uncomplicated
CPT/HCPCS: 70450; 99284

== ENCOUNTER 2019-12-01 13:00 | Emergency (ER) | payer OTHER, MEDICAID ==
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
[2019-12-01 14:29] LABS: ABSOLUTE BASOPHILS # (AUTO) 0.1 10^3/uL (0.0-0.2); ABSOLUTE EOSINOPHILS # (AUTO) 0.1 10^3/uL (0.0-0.6); ABSOLUTE LYMPHOCYTES (AUTO) 2.2 10^3/uL (0.5-4.7); ABSOLUTE MONOCYTES (AUTO) 0.7 10^3/uL (0.1-1.4); ABSOLUTE NEUT (AUTO) 4.6 10^3/uL (1.7-8.2); BASOPHILS % (AUTO) 1.1 % (0-2); EOSINOPHILS % (AUTO) 0.7 % (0-6); HEMATOCRIT 39.8 % (36.0-47.0); HEMOGLOBIN 13.3 g/dL (12.0-15.5); MEAN CORPUSCULAR HEMOGLOBIN 27.1 pg (27.0-33.4); MEAN CORPUSCULAR HGB CONC 33.3 g/dL (32.0-36.0); MEAN CORPUSCULAR VOLUME 81 fl (80-97); MONOCYTES % (AUTO) 9.4 % (3-13); PLATELET COUNT 419 10^3/uL (150-450); RED BLOOD COUNT 4.89 10^6/uL (3.72-5.28); SEGMENTED NEUTROPHILS % (AUTO) 59.8 % (42-78); TOTAL CELLS COUNTED % (AUTO) 100 %; WHITE BLOOD COUNT 7.7 10^3/uL (4.0-10.5)
[2019-12-01 14:37] LABS: APPEARANCE,URINE CLEAR; BILIRUBIN,URINE NEGATIVE (NEGATIVE); COLOR,URINE YELLOW; GLUCOSE, URINE NEGATIVE (NEGATIVE); KETONES,URINE NEGATIVE (NEGATIVE); LEUKOCYTE ESTERASE,URINE NEGATIVE (NEGATIVE); NITRITE,URINE NEGATIVE (NEGATIVE); PROTEIN,URINE NEGATIVE (NEGATIVE); URINE SPECIFIC GRAVITY 1.024
[2019-12-01 14:46] LABS: ALBUMIN 4.3 g/dL (3.5-5.0); ALKALINE PHOSPHATASE 118 U/L (38-126); ANION GAP 7 (5-19); ASPARTATE AMINO TRANSFERASE 26 U/L (14-36); BILIRUBIN,TOTAL 0.3 mg/dL (0.2-1.3); BLOOD UREA NITROGEN 11 mg/dL (7-20); CALCIUM 9.6 mg/dL (8.4-10.2); CARBON DIOXIDE 24 mmol/L (22-30); CHLORIDE 107 mmol/L (98-107); GLUCOSE 93 mg/dL (75-110); POTASSIUM 4.5 mmol/L (3.6-5.0); TOTAL PROTEIN 8.2 g/dL (6.3-8.2)
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
[2019-12-01] MEDS ORDERED: KETOROLAC TROMETHAMINE INJ/PF 30 MG/1 ML SDV IV ONE (15:38)
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
[2019-12-01 16:09] VITALS: BP 93/72
== END 2019-12-01 16:19 | disposition home or self-care (01) ==
LOC: ER 13:00
DX: S16.1XXA Strain of muscle, fascia and tendon at neck level, initial encounter (principal); S20.219A Contusion of unspecified front wall of thorax, initial encounter; V48.5XXA Car driver injured in noncollision transport accident in traffic accident, initial encounter; Y93.89 Activity, other specified; F17.200 Nicotine dependence, unspecified, uncomplicated; F12.10 Cannabis abuse, uncomplicated; Z88.6 Allergy status to analgesic agent; Z88.5 Allergy status to narcotic agent
CPT/HCPCS: 99283; 96374; 36415; 84703; 85025; 80053; 81001; 70450; 72125; J1885

== ENCOUNTER 2020-04-17 14:52 | Emergency (ER) | payer MEDICAID ==
[2020-04-17 15:07] VITALS: BP 142/83
[2020-04-17] MEDS ORDERED: SULFAMETHOXAZOLE/TRIMETHOPRIM 800-160 MG TABLET PO ONE (15:38)
[2020-04-17] MEDS ORDERED: DOXYCYCLINE HYCLATE 100 MG TABLET PO ONE (15:38)
--- NOTE | 2020-04-17 15:44 | ER Document Report ---
ED Skin Rash/Insect Bite/Abscs - General Chief Complaint: Rash Stated Complaint: RASH/LEG PAIN Time Seen by Provider: 04/17/20 15:21 Primary Care Provider: [facility] [Provider Group] - Follow up as needed Mode of Arrival: Ambulatory Information source: Patient Notes: 24-year-old female presented to ED for a insect or spider bite in the middle of February that festered up. She states since then she has been getting these little spots that then fester up and make a pus pocket and then she pops them and then she gets another one. She states she has not changed since March 20. She states she continues to get these little sores on her leg the past throughout. She does have 2 that are abscesses today. These were both I&D with 18-gauge needles and wound culture sent. She will treated with doxycycline and Septra per Dr. Jhon Perez recommendation. Patient has been instructed to clean these areas 4-5 times a day with Dial antibacterial soap and to take her antibiotics as prescribed. Patient verbalized understanding of this. Patient was instructed to please follow-up with her primary care doctor. Constitutional: Negative for fever. HENT: Negative for sore throat. Eyes: Negative for visual changes. Cardiovascular: Negative for chest pain. Respiratory: Negative for shortness of breath. Gastrointestinal: Negative for abdominal pain, vomiting or diarrhea. Genitourinary: Negative for dysuria. Musculoskeletal: Negative for back pain. Skin: Tender swollen areas to the right lateral leg 1 on the upper leg one on the lower leg. Neurological: Negative for headaches, weakness or numbness. 10 point ROS negative except as marked above and in HPI. PHYSICAL EXAMINATION: GENERAL: Well-appearing, well-nourished and in no acute distress. HEAD: Atraumatic, normocephalic. EYES: Pupils equal round extraocular movements intact, conjunctiva are normal. ENT: Nares patent NECK: Normal range of motion LUNGS: No respiratory distress Musculoskeletal: Normal range of motion NEUROLOGICAL: Normal speech, normal gait. PSYCH: Normal mood, normal affect. SKIN: Abscesses 1 to the upper leg 1 to the lower leg both on the lateral aspect of the right leg TRAVEL OUTSIDE OF THE [place] IN LAST 30 DAYS: No - HPI Patient complains to provider of: Tender/swollen area Onset: Other - Tender areas have been developing since about March 20 1 will pop and drain and then another will develop she has 2 that are abscesses at this time. Onset/Duration: Intermittent Quality of pain: Throbbing Severity: Moderate - She states the pain was a 3 before the abscesses were I indeed and the 2 after they were I&D Pain Level: 2 Skin Character: Abscess Quality of rash: Painful Exacerbated by: Walking - Palpation Similar symptoms previously: Yes - Sh states he is slowly developed since March 20 1 will come and then anoth Recently seen / treated by doctor: No - Related Data Allergies/Adverse Reactions: codeine Allergy (Verified 12/01/19 13:34) Past Medical History - General Information source: Patient - Social History Smoking Status: Current Every Day Smoker Cigarette use (# per day): Yes - 2 per day Smoking Education Provided: Yes - 2 min Frequency of alcohol use: Social Drug Abuse: None Occupation: [employer] with: Family Family History: Reviewed & Not Pertinent Patient has suicidal ideation: No Patient has homicidal ideation: No - Past Medical History Cardiac Medical History: Reports: None Pulmonary Medical History: Reports: None EENT Medical History: Reports: None Neurological Medical History: Reports: None Endocrine Medical History: Reports: None Renal/ Medical History: Reports: None Malignancy Medical History: Reports: None GI Medical History: Reports: None Musculoskeletal Medical History: Reports None Skin Medical History: Reports Hx Cellulitis Psychiatric Medical History: Reports: None Traumatic Medical History: Reports: None Infectious Medical History: Reports: None Past Surgical History: Reports: Hx Tonsillectomy - Immunizations Immunizations up to date: Yes Hx Diphtheria, Pertussis, Tetanus Vaccination: Yes Physical Exam - Vital signs Vitals: Temp Pulse Resp BP Pulse Ox 97.9 F 102 H 18 142/83 H 100 04/17/20 15:05 04/17/20 15:05 04/17/20 15:05 04/17/20 15:05 04/17/20 15:05 Course - Vital Signs Vital signs: Temp Pulse Resp BP Pulse Ox 97.9 F 102 H 18 142/83 H 100 04/17/20 15:05 04/17/20 15:05 04/17/20 15:05 04/17/20 15:05 04/17/20 15:05 Procedures - Incision and Drainage Right upper lateral Leg Time completed: 15:32 Type: Simple Anesthetic type: Other mL's of anesthetic: 0 Blade size: Other - 18-gauge needle I&D procedure: Chlorprep applied Incision Method: Incision made with needle Amount/type of drainage: Large amount of purulent drainage Right Lower lateral leg Time completed: 15:34 Type: Simple Anesthetic type: Other mL's of anesthetic: 0 Blade size: Other - 18-gauge needle I&D procedure: Chlorprep applied Incision Method: Incision made with needle Amount/type of drainage: Large amount of purulent drainage Discharge - Discharge Clinical Impression: abscess upper right lateral leg, abscess lower right lateral Condition: Stable Disposition: HOME, SELF-CARE Additional Instructions: ABSCESS: You have an abscess (boil). This a pus-forming infection, usually due to staph. Some boils may be left to drain on their own, but most require lancing. From the time the tender lump first appears, it may be three or four days before the abscess is ready to gallo. Local heat and rest help at this stage of treatment. An antibiotic may prevent spread of the infection. Once the abscess is opened, packing may be placed into it. This is done so pus is not sealed inside by premature closure of the cavity. The packing will be removed at your follow-up visit or you may be advised to remove it yourself at home. Sometimes this packing must be replaced a few times during healing. The wound will heal with surprisingly little scar. Depending on the size and location of an abscess, healing can take one to four weeks. You may shower and wash the area around the incision site two or three times a day. Antibiotics may be prescribed, but are usually not necessary after an abscess has been drained. If you develop fever, chills, worsening pain, or increasing swelling in the area, call the doctor or return immediately. POST INCISION AND DRAINAGE: You have had an incision made to allow drainage of an abscess. The incision must remain open so that pus and debris can drain from the wound. If the abscess cavity is large, packing is placed. This keeps the tissues from collapsing and trapping pus inside, while the body shrinks the cavity. The packing may need to be replaced every day or two. The physician will instruct you on the packing. Keep a bulky dressing over the area. Replace it if it becomes saturated wi th blood or pus. Do not disturb the packing (if present). You may shower and cleanse the area with gentle soap and warm water two or three times a day. Local warmth may be soothing, and may promote faster healing. Return if you develop high fever or chills, or if you note spreading redness, increasing swelling, or increasing tenderness. MRSA CELLULITIS: You have an infection of your skin and underlying soft tissues called cellulitis. This is due to bacteria, which can enter through any break in the skin, or even through an irritated hair follicle. Untreated, cellulitis will usually worsen and may form an abscess which requires draining. Although many bacterial organisms can cause cellulitis and abscess formations, the most likely bacteria is Methicillin-Resistant Staph Aureus, or MRSA for short. Antibiotics are required. Usually, warm packs or warm soaks, and elevation of the infected area are recommended. You should start getting better within 24 to 36 hours. Most infections respond quickly to the right medication. Follow-up care is important, however, to check for abscess (boil) formation, unsuspected foreign body, or resistant infection. If you develop fever, chills, or if the area of infection is becoming rapidly more swollen or painful, call the doctor at once. TRIMETHOPRIM-SULFA: You have been given a prescription for trimethoprim-sulfa (TMS, Septra, Bactrim). This is a combination antibiotic of the sulfa class, often used for urinary tract infections, middle ear infections, bronchitis, shigella intestinal infection, and Pneumocystis pneumonia. TMS is usually well-tolerated. Occasional side effects include nausea and decreased appetite. Septra is not recommended for infants less than two months of age. Do not take this medication if you have experienced severe side effects or allergy to sulfa medicine. You should stop this medicine at once and contact your physician if you develop any rash, joint pain, shortness of breath, bruising, or jaundice (yellow color in the skin), or if you develop any other new or unusual symptoms. DOXYCYCLINE: Doxycycline (Vibramycin, Doryx) is an antibiotic of the tetracycline family. This type of drug is useful for infections of the respiratory tract and genital tract, and is sometimes used for intestinal infections. Unlike most tetracyclines, doxycycline can be taken with food. It is longer acting, and (usually) less prone to side effects than regular tetracycline. Tetracycline antibiotics can stain immature teeth and SHOULD NOT BE TAKEN BY CHILDREN, NURSING MOTHERS, OR WOMEN. Tetracyclines can make you more prone to sunburn. Abdominal cramping, nausea, and diarrhea are occasional side effects. Women may experience vaginal yeast infections. Call the doctor at once if you develop hives, itching, shortness of breath, or lightheadedness. Please clean these areas at least 4-5 times a day. Scrub well with antibacteri al soap. Rinse well. Do not use the same calls on anywhere else on your body. If you develop any more please clean well 5 times a day and if they continue to swell come in and have them examined. You can call the results of this culture [phone] in about 48 hours but since today is Monday I would call on Monday. FOLLOW-UP CARE: Most simple abscesses will not require a follow up visit. If you had packing placed in the abscess, remove it as instructed by the physician. If you have been referred to a physician for follow-up care, call the physicians office for an appointment as you were instructed or within the next two days. If you experience worsening or a significant change in your symptoms, return to the Emergency Department at any time for re-evaluation. Prescriptions: Doxycycline Monohydrate 100 mg PO BID #20 tablet Sulfamethoxazole/Trimethoprim [Septra-Ds 800-160 mg Tablet] 1 tab PO BID #20 tablet Forms: Elevated Blood Pressure, Smoking Cessation Education, Return to Work Referrals: [facility] [Provider Group] - Follow up as needed
--- NOTE | 2020-04-17 15:50 | ER Document Report ---
Doctor's Note Notes: 04/17/20 15:48 Patient presents today with right lower leg blistering, and comedones yellow- colored surrounding hair follicles. Patient has folliculitis and most likely a MRSA skin infection. Plan is prescribe antibiotics that cover MRSA. I recommended doxycycline and Bactrim. 04/17/20 15:56
== END 2020-04-17 16:01 | disposition home or self-care (01) ==
LOC: ER 14:52
DX: L02.415 Cutaneous abscess of right lower limb (principal); L73.9 Follicular disorder, unspecified; F17.210 Nicotine dependence, cigarettes, uncomplicated; Z88.6 Allergy status to analgesic agent; Z88.5 Allergy status to narcotic agent
CPT/HCPCS: 99283; 87070; 87205; 87075; 87077; 87186; 10061; J3490 ×2